=== PATIENT | female | born 1995 | race Caucasian/White ===

== ENCOUNTER 2018-05-11 09:35 | Emergency (ER) | payer OTHER ==
[2018-05-11 10:07] VITALS: BP 115/77
--- NOTE | 2018-05-11 10:22 | UC ---
Throat Pain/Nasal George HPI - HPI Summary HPI Summary: 22 y/o female with PMH + for asthma presents with continued sore throat. Concerned about enlarged tonsils, "white patches" on throat. pain with swallowing, no fever, chills, body aches. Seen at [facility], no swab. requesting strep throat swab. - History of Current Complaint Chief Complaint: UCRespiratory Stated Complaint: SORE THROAT Time Seen by Provider: 05/11/18 09:58 Hx Obtained From: Patient Hx Last Menstrual Period: 04/24/2018 ?: No Onset/Duration: Sudden Onset, Lasting Days Severity: Moderate Pain Intensity: 3 Pain Scale Used: 0-10 Numeric Associated Signs & Symptoms: Positive: Dysphagia - Allergies/Home Medications Allergies/Adverse Reactions: Allergies Allergy/AdvReac Type Severity Reaction Status Date / Time No Known Allergies Allergy Verified 05/11/18 10:01 Home Medications: Home Medications Drospir/Eth Estra/Levomefol Ca [Beyaz 3-0.02-0.451 mg] 1 tab PO DAILY 05/11/18 [ History Confirmed 05/11/18] Fluticasone NASAL SPRAY 50MCG* [Flonase NASAL SPRAY 50MCG*] 2 spray BOTH NARES DAILY 05/11/18 [History Confirmed 05/11/18] Ibuprofen 200 mg PO Q8HR PRN 05/11/18 [History Confirmed 05/11/18] Pseudoephedrine HCL ER TAB* [Sudafed 12 Hour*] 120 mg PO BID PRN 05/11/18 [ History Confirmed 05/11/18] guaiFENesin [Mucinex] 600 mg PO Q12H PRN 05/11/18 [History Confirmed 05/11/18] PMH/Surg Hx/FS Hx/Imm Hx Previously Healthy: Yes - asthma, no complaints. - Surgical History Surgical History: Yes Surgery Procedure, Year, and Place: BACK SURGERY 2009- For scioliosis - Social History Alcohol Use: Occasionally Substance Use Type: None Smoking Status (MU): Never Smoked Tobacco Review of Systems All Other Systems Reviewed And Are Negative: Yes Constitutional: Positive: Negative ENT: Positive: Sore Throat Is Patient Immunocompromised?: No Physical Exam Triage Information Reviewed: Yes Appearance: Well-Appearing, No Pain Distress, Well-Nourished Vital Signs: Initial Vital Signs Temp 98.4 F 05/11/18 09:59 Pulse 94 05/11/18 09:59 Resp 18 05/11/18 09:59 BP 115/77 05/11/18 09:59 Pulse Ox 97 05/11/18 09:59 Vital Signs Reviewed: Yes Eyes: Positive: Conjunctiva Clear ENT: Positive: Pharyngeal erythema - mild with exudates b/l, mild tonislar enlargement, TMs normal, Tonsillar swelling, Tonsillar exudate, Uvula midline. Negative: Sinus tenderness Neck: Positive: Supple, Nontender, No Lymphadenopathy Neurological Exam: Normal Throat Pain/Nasal Course/Dx - Course Course Of Treatment: rapid strep: negative, conservative treatment, follow up with [facility] - Differential Dx/Diagnosis Differential Diagnosis/HQI/PQRI: Pharyngitis, URI Provider Diagnosis: Pharyngitis Discharge - Sign-Out/Discharge Documenting (check all that apply): Patient Departure All imaging exams completed and their final reports reviewed: No Studies - Discharge Plan Condition: Good Disposition: HOME Patient Education Materials: Pharyngitis (ED) Referrals: Annie Olea MD [Primary Care Provider] - Additional Instructions: - Follow up with [facility] - Converative treatments as discussed - Over the counter medications for symptoms or continue medications given to you by [facility]. - increase fluid intake - Billing Disposition and Condition Condition: GOOD Disposition: Home
== END 2018-05-11 10:50 | disposition home or self-care (01) ==
LOC: UCEAST 09:35
DX: J02.9 Acute pharyngitis, unspecified (principal)
CPT/HCPCS: 87651; 99201; G0463